=== PATIENT | female | born 1995 | race Caucasian/White ===

== ENCOUNTER 2017-07-05 13:39 | Inpatient (IN) | payer OTHER ==
[2017-07-05] MEDS ORDERED: OXYTOCIN/DEXTROSE 5%-WATER 30 UNITS/500 ML BAG IV ONE (13:51)
[2017-07-05] MEDS ORDERED: RINGER'S SOLUTION,LACTATED 1,000 ML IV ONE (13:51)
[2017-07-05] MEDS ORDERED: ONDANSETRON HCL/PF 2 MG/ML VIAL IV PRN ×2 (13:51→16:06)
[2017-07-05] MEDS ORDERED: PENICILLIN G POTASSIUM 5 MILLIONUNT in DEXTROSE 5 % IN WATER 100 ML IV ONE ×2 (13:51)
[2017-07-05] MEDS ORDERED: LIDOCAINE HCL 50 ML VIAL PERI PRN (13:51)
[2017-07-05] MEDS: DEXTROSE 5%-LACTATED RINGERS 1,000 ML IV PRN ×2 (14:15→20:04)
[2017-07-05] MEDS ORDERED: BUPIVACAINE HCL/0.9 % NACL/PF 250 ML EP PRN (16:06)
[2017-07-05] MEDS ORDERED: NALOXONE HCL 1 MG/1 ML SYRG IV PRN (16:06)
[2017-07-05] MEDS ORDERED: fentaNYL CITRATE/PF 50 MCG/ML AMPUL IT SCH (16:15)
--- NOTE | 2017-07-05 16:49 | OR ---
Anesthesia Procedure Note - Anesthesia Procedure Note Narrative: Vital Signs - Last Taken Temp 36.6 C 07/05/17 16:18 Pulse 82 07/05/17 16:18 Resp 18 07/05/17 16:18 BP 126/82 07/05/17 16:18 Pulse Ox 100 07/05/17 16:18 07/05/17 16:49 ANESTHESIA PROCEDURE NOTE Date of Procedure: 07/05/2017 Time of procedure: 1640. Performed by: Wilber Pearson CRNA Death Claim Examiner: None. Preprocedure diagnosis: Active labor. Post procedure diagnosis: Same. Procedure: Insertion of labor epidural. Indications: The patient is a 22 -year-old prima para female in active labor requesting labor epidural for pain management. Findings: See below. Details of the procedure: The patient was placed in a sitting position. Back was prepped with DuraPrep. Patient was then draped in a sterile fashion. Lidocaine 1% was infiltrated to the skin and subcutaneous tissues at the level of the L3 4 interspace. The epidural space was identified using a 18-gauge Tuohy needle with [id number] technique. 20 mcg fentanyl was given intrathecally using a 27 ga. spinal needle. Epidural catheter was inserted without difficulty. Negative test dose was elicited using 5 mL of 1.5% preservative-free lidocaine plus epinephrine 1 200,000. The epidural catheter was then taped and secured in place. EBL: Minimal. Fluids: N/A. Specimen: N/A. Post procedure condition: The patient tolerated the procedure well. No complications were noted. Thank you for this consultation. Keita CRNA
[2017-07-05] MEDS: PENICILLIN G POTASSIUM 2.5 MILLIONUNT in DEXTROSE 5 % IN WATER 100 ML IV SCH ×4 (17:57→21:51)
[2017-07-06] MEDS: DEXTROSE 5%-LACTATED RINGERS 1,000 ML IV PRN (01:49)
[2017-07-06] MEDS ORDERED: GLYCERIN/WITCH HAZEL LEAF 40 APPL BOX TP PRN (01:59)
[2017-07-06] MEDS ORDERED: oxyCODONE HCL/ACETAMINOPHEN 1 TAB TABLET PO PRN ×2 (01:59)
[2017-07-06] MEDS ORDERED: HYDROCORTISONE 30 APPL TUBE TP PRN (01:59)
[2017-07-06] MEDS ORDERED: IBUPROFEN 800 MG TABLET PO PRN (01:59)
[2017-07-06] MEDS ORDERED: BISACODYL 10 MG SUPP.RECT RC PRN (01:59)
[2017-07-06] MEDS ORDERED: OXYTOCIN/DEXTROSE 5%-WATER 30 UNITS/500 ML BAG IV ONE (01:59)
[2017-07-06] MEDS ORDERED: SENNOSIDES 8.6 MG TABLET PO PRN (01:59)
[2017-07-06] MEDS ORDERED: BENZOCAINE/MENTHOL 81 SPRAY CAN TP PRN (01:59)
--- NOTE | 2017-07-06 02:06 | OR ---
Operative Report - Dictated Report Narrative: Spontaneous vaginal delivery of viable male at 0130 on 07/06/2017 with Apgars 9 and 9, weighing 3208 g in [place] position. Cord clamping delayed approximately 1 minute Placenta delivered complete, intact, with three vessel cord Estimated blood loss: less than 50 ml Lacerations: Bilateral periurethral abrasions with no repair History for Definition: * The number of deliveries resulting in a live the patient experienced prior to current hospitalization * The previous delivery of live twins or any live multiple gestation is considered one live event. *If primagravida or nulliparous is documented select zero for the number of previous live births. Live Events: 0
[2017-07-06] MEDS: DOCUSATE SODIUM 100 MG CAPSULE PO SCH ×2 (09:29→21:26)
--- NOTE | 2017-07-06 22:33 | PN ---
Subjective - Date and Time Seen Date: 07/06/17 Time: 22:33 Objective - Vitals Vitals: Last Vital Signs Temp 36.4 C L 07/06/17 20:16 Pulse 78 07/06/17 20:16 Resp 20 07/06/17 20:16 BP 113/82 07/06/17 20:16 Pulse Ox 97 07/06/17 20:16 Patient denies complaints. Lochia wnl Abdomen - soft, nontender Uterus - firm, at umbilicus - 1 No calf tenderness Impression: day #0 - s/p spontaneous vaginal delivery. GBS positive carrier. Plan: Continue routine care Cauti Physician Documentation - Urinary Catheter Management Urethral (Bhat) Date of Insertion: 07/05/17 Time of Insertion: 17:30
--- NOTE | 2017-07-07 08:38 | PN ---
Subjective - Date and Time Seen Date: 07/07/17 Time: 08:37 Objective - Vitals Vitals: Last Vital Signs Temp 36.1 C L 07/07/17 07:22 Pulse 72 07/07/17 07:22 Resp 18 07/07/17 07:22 BP 112/86 07/07/17 07:22 Pulse Ox 100 07/07/17 07:22 Patient denies complaints. Lochia wnl Abdomen - soft, nontender Uterus - firm, at umbilicus - 1 No calf tenderness Impression: day #1 - s/p spontaneous vaginal delivery. GBS positive carrier Plan: Continue routine care. Discharge after 48 hours of . Cauti Physician Documentation - Urinary Catheter Management Urethral (Bhat) Date of Insertion: 07/05/17 Time of Insertion: 17:30
[2017-07-07] MEDS: DOCUSATE SODIUM 100 MG CAPSULE PO SCH ×2 (16:08→20:13)
[2017-07-08 07:28] VITALS: BP 120/91
[2017-07-08] MEDS: DOCUSATE SODIUM 100 MG CAPSULE PO SCH (08:05)
--- NOTE | 2017-07-08 08:29 | PN ---
Subjective - Date and Time Seen Date: 07/08/17 Time: 08:28 Objective - Vitals Vitals: Last Vital Signs Temp 36.2 C L 07/08/17 07:27 Pulse 88 07/08/17 07:27 Resp 18 07/08/17 07:27 BP 120/91 07/08/17 07:27 Pulse Ox 99 07/08/17 07:27 Patient denies complaints. Lochia wnl Abdomen - soft, nontender Uterus - firm, at umbilicus - 2 No calf tenderness Impression: day #2 - s/p spontaneous vaginal delivery. Plan: Routine discharge instructions Cauti Physician Documentation - Urinary Catheter Management Urethral (Bhat) Date of Insertion: 07/05/17 Time of Insertion: 17:30
== END 2017-07-08 12:42 | disposition home or self-care (01) | DRG 775 ==
LOC: OB 13:39
PROVIDERS: ADMIT Obstetrics & Gynecology; ATTEND Obstetrics & Gynecology
PROC: 10E0XZZ Delivery of Products of Conception, External Approach (ICD-10-PCS; principal; 2017-07-06)
PROC: 4A1HXCZ Monitoring of Products of Conception, Cardiac Rate, External Approach (ICD-10-PCS; 2017-07-06)
PROC: 00HU33Z Insertion of Infusion Device into Spinal Canal, Percutaneous Approach (ICD-10-PCS; 2017-07-06)
DX: O99.824 Streptococcus B carrier state complicating childbirth (principal); O99.02 Anemia complicating childbirth; D64.9 Anemia, unspecified; O42.02 Full-term premature rupture of membranes, onset of labor within 24 hours of rupture; Z3A.39 39 weeks gestation of pregnancy; Z37.0 Single live birth

== ENCOUNTER 2018-08-23 02:10 | Inpatient (IN) ==
[2018-08-23] MEDS ORDERED: LIDOCAINE HCL 50 ML VIAL ONE (02:34)
[2018-08-23] MEDS ORDERED: RINGER'S SOLUTION,LACTATED 1,000 ML IV PRN ×2 (03:08→03:13)
[2018-08-23] MEDS ORDERED: LIDOCAINE HCL 50 ML VIAL PERI PRN (03:08)
[2018-08-23] MEDS ORDERED: PENICILLIN G POTASSIUM 5 MILLIONUNT in DEXTROSE 5 % IN WATER 100 ML IV ONE ×2 (03:08)
[2018-08-23] MEDS ORDERED: ONDANSETRON HCL/PF 2 MG/ML VIAL IV PRN (03:08)
[2018-08-23] MEDS ORDERED: SENNOSIDES 8.6 MG TABLET PO PRN (03:13)
[2018-08-23] MEDS ORDERED: OXYTOCIN/DEXTROSE 5%-WATER 30 UNITS/500 ML BAG IV ONE (03:13)
[2018-08-23] MEDS ORDERED: BISACODYL 10 MG SUPP.RECT RC PRN (03:13)
[2018-08-23] MEDS ORDERED: oxyCODONE HCL/ACETAMINOPHEN 1 TAB TABLET PO PRN ×2 (03:13)
[2018-08-23] MEDS ORDERED: HYDROCORTISONE 30 APPL TUBE TP PRN (03:13)
[2018-08-23] MEDS ORDERED: BENZOCAINE/MENTHOL 81 SPRAY CAN TP PRN (03:13)
[2018-08-23] MEDS ORDERED: GLYCERIN/WITCH HAZEL LEAF 40 APPL BOX TP PRN (03:13)
--- NOTE | 2018-08-23 03:14 | HP ---
Chief Complaint - Chief Complaint Date of Service: 08/23/18 Time of Service: 03:14 Chief Complaint: contractions History of Present Illness: 23 yo at 38 4/7 wks presents to L&D complaining of contractions since about MN. Upon arrival she was 9 cm with membranes intact. She delivered before PCN could be infused through IV. This complicated by anemia and asthma (uncomplicated). RH positive Rubella immune GBS positive Medical History (Last Reviewed 08/23/18 @ 03:21 by Earl Richter DO) Allergic rhinitis Onset Date: Unknown Anemia affecting Onset Date: 04/08/17 Asthma Onset Date: Unknown Chlamydia trachomatis infection Onset Date: 10/11/16 Skin rash Onset Date: ~2013 Throat pain Onset Date: Unknown Surgical History: Surgical History (Last Reviewed 08/23/18 @ 03:21 by Earl Richter DO) History of placement of ear tubes Onset Date: Unknown History of tonsillectomy and adenoidectomy Onset Date: 2010 Family History: Family History (Last Reviewed 08/23/18 @ 03:21 by Earl Richter DO) Mother Hypoglycemia Father Heart disease Grandfather Cancer Grandfather Hypoglycemia Grandmother Lung cancer Grandmother Sandra Gehrigs disease Social History: Preferred Language Estonian Abuse History No History of abuse Psych History No pertinent hx Review Of Systems (GEN) - Review of Systems EENTM: Present: No Symptoms Reported Respiratory: Present: No Symptoms Reported Cardiac: Present: No Symptoms Reported Abdominal: Present: Diarrhea, Other - contractions Genitourinary: Present: Other - bloody show Musculoskeletal: Present: No Symptoms Reported Neurological: Present: No Symptoms Reported Skin: Present: No Symptoms Reported Endocrine: Present: No Symptoms Reported Immunizations: IMMUNIZATION HX Immunizations Up to Date Yes History of Influenza Vaccine Yes Allergies/Adverse Reactions: Allergies Allergy/AdvReac Type Severity Reaction Status Date / Time No Known Allergies Allergy Verified 08/18/18 13:55 Home Medications: HOME MEDICATIONS Ascorbic Acid/Ascorbate Sodium [Vit C-Melissa Hips 500 mg Chew Tb] 500 mg PO DAILY 06/15/17 [Last Taken 08/14/18] Vits96/Iron Fum/Folic [ S] 1 tab PO DAILY 06/15/17 [Last Taken 08/14/18] Ferrous Sulfate 325 mg PO DAILY #60 tab 07/06/17 [Last Taken 08/14/18] Exam - Exam Vital Signs: Vital Signs - Last Taken Temp 36.1 C 08/23/18 03:11 Pulse 97 08/23/18 03:11 Resp 18 08/23/18 03:11 BP 118/75 08/23/18 03:11 Pulse Ox 97 08/23/18 03:11 Constitutional: Present: Alert, Oriented x3, Cooperative, Moderate distress ENT Exam: Present: hearing grossly normal Breasts: Present: Exam deferred Respiratory: Present: lungs clear Cardiovascular/Chest: Present: normal peripheral pulses, regular rate, rhythm, no edema Abdomen: Present: soft, nontender /Rectal: Present: Other - cvx 9/100/0 Extremity: Present: no pedal edema, no calf tenderness Skin Exam: Present: normal color, warm/dry, no cyanosis Neurologic: Present: alert, normal mood/affect, oriented x 3 Appearance: Present: appropriate appearance Eye contact: Present: cooperative, good eye contact Thoughts: Present: normal thought pattern Assessment/Plan - Assessment/Plan (1) Labor established Assessment: Admit for delivery. Since PCN not given before delivery will alert peds and observe baby closely. Problem: Acute (2) GBS (group B Streptococcus carrier), +RV culture, currently Problem: Acute (3) Asthma Problem: Acute
--- NOTE | 2018-08-23 03:15 | OR ---
Operative Report - Dictated Report Narrative: Spontaneous vaginal delivery of viable male at 0244 on 08/23/2018 with Apgars 9 and 9, weighing 3763 g in [place] position. Cord clamping delayed approximately 1 minute Placenta delivered complete, intact, with three vessel cord Estimated blood loss: less than 50 ml Anesthesia: Pudendal nerve block Lacerations: None
--- NOTE | 2018-08-23 03:55 | PN ---
Progess Note - Interim Date: 08/23/18 Time: 03:55 History for MU Definition: * The number of deliveries resulting in a live the patient experienced prior to current hospitalization * The previous delivery of live twins or any live multiple gestation is considered one live event. *If primagravida or nulliparous is documented select zero for the number of previous live births. Live Events: 1
[2018-08-23] MEDS ORDERED: LIDOCAINE HCL 50 ML VIAL IJ ONE (04:30)
[2018-08-23] MEDS: IBUPROFEN 800 MG TABLET PO PRN ×2 (08:02→17:16)
[2018-08-23] MEDS: DOCUSATE SODIUM 100 MG CAPSULE PO SCH ×2 (08:18→20:27)
[2018-08-23] MEDS: PRENATAL VITS96/IRON FUM/FOLIC 1 TAB TABLET PO SCH (08:18)
[2018-08-23] MEDS: ASCORBIC ACID 500 MG TABLET PO SCH (08:18)
[2018-08-23] MEDS: FERROUS SULFATE 325 MG TABLET PO SCH (17:16)
[2018-08-24] MEDS: DOCUSATE SODIUM 100 MG CAPSULE PO SCH ×2 (08:16→20:05)
[2018-08-24] MEDS: PRENATAL VITS96/IRON FUM/FOLIC 1 TAB TABLET PO SCH (08:16)
[2018-08-24] MEDS: FERROUS SULFATE 325 MG TABLET PO SCH (08:16)
[2018-08-24] MEDS: ASCORBIC ACID 500 MG TABLET PO SCH (08:16)
--- NOTE | 2018-08-24 09:31 | PN ---
Subjective - Date and Time Seen Date: 08/24/18 Time: : Objective - Vitals Vitals: Last Vital Signs Temp 36.2 C 08/24/18 06:40 Pulse 76 08/24/18 06:40 Resp 18 08/24/18 06:40 BP 123/82 08/24/18 06:40 Pulse Ox 98 08/24/18 06:40 Patient denies complaints. Bottle feeding. Lochia wnl Abdomen - soft, nontender Uterus - firm, at umbilicus - 1 No calf tenderness Impression: day #1 - s/p precipitous spontaneous vaginal delivery. Plan: Continue routine care Assessment/Plan - Problems/Diagnosis (1) Labor established Problem: Acute (2) GBS (group B Streptococcus carrier), +RV culture, currently Problem: Acute (3) Asthma Problem: Acute
[2018-08-24] MEDS: IBUPROFEN 800 MG TABLET PO PRN (16:35)
[2018-08-25 08:16] VITALS: BP 123/87
[2018-08-25] MEDS: PRENATAL VITS96/IRON FUM/FOLIC 1 TAB TABLET PO SCH (08:52)
[2018-08-25] MEDS: FERROUS SULFATE 325 MG TABLET PO SCH (08:52)
[2018-08-25] MEDS: ASCORBIC ACID 500 MG TABLET PO SCH (08:52)
[2018-08-25] MEDS: DOCUSATE SODIUM 100 MG CAPSULE PO SCH (08:52)
--- NOTE | 2018-08-25 12:05 | PN ---
Subjective - Date and Time Seen Date: 08/25/18 Time: 12:05 - Seen at 0850 this am Objective - Vitals Vitals: Last Vital Signs Temp 36.4 C 08/25/18 08:13 Pulse 96 08/25/18 08:13 Resp 18 08/25/18 08:13 BP 123/87 08/25/18 08:13 Pulse Ox 97 08/25/18 08:13 Patient denies complaints. Bottle feeding Lochia wnl Abdomen - soft, nontender Uterus - firm, at umbilicus - 2 No calf tenderness Impression: day #2 - s/p spontaneous vaginal delivery. Plan: Routine discharge instructions Assessment/Plan - Problems/Diagnosis (1) Labor established Problem: Acute (2) GBS (group B Streptococcus carrier), +RV culture, currently Problem: Acute (3) Asthma Problem: Acute
== END 2018-08-25 09:50 | disposition home or self-care (01) | DRG 806 ==
LOC: OBCLINIC 02:10 → OB 02:24
PROVIDERS: ADMIT Obstetrics & Gynecology; ATTEND Obstetrics & Gynecology
CPT/HCPCS: 59025